=== PATIENT | female | born 1970 | race Caucasian/White ===

== ENCOUNTER → 2020-07-28 | Outpatient (CLI) | payer BC ==
[2020-07-28 17:23] LABS: HEMOGLOBIN 11.8 gm/dl (12.3-15.3); RED BLOOD COUNT 3.98 M/UL (4.00-5.10); WHITE BLOOD COUNT 6.4 K/UL (4.5-11.0)
[2020-07-28 17:41] LABS: BUN/CREATININE RATIO 14 (0-10)
[2020-07-30 09:14] LABS: VITAMIN D, 25-HYDROXY 36.2 ng/mL (30.0-100.0)
== END ==
LOC: LAB 16:32
PROVIDERS: Family Medicine
DX: R53.83 Other fatigue (principal); F17.200 Nicotine dependence, unspecified, uncomplicated; Z87.01 Personal history of pneumonia (recurrent)
CPT/HCPCS: 71046; 80053; 82607; 83921; 84443; 85025

== ENCOUNTER → 2020-10-22 | Outpatient (CLI) | payer BC ==
[2020-10-22 18:14] LABS: HEMOGLOBIN 12.7 gm/dl (12.3-15.3); RED BLOOD COUNT 4.1 M/UL (4.00-5.10); WHITE BLOOD COUNT 6.3 K/UL (4.5-11.0)
== END ==
LOC: LAB 16:53
PROVIDERS: Family Medicine
DX: D51.0 Vitamin B12 deficiency anemia due to intrinsic factor deficiency (principal)
CPT/HCPCS: 36415; 82607; 83921; 85025

== ENCOUNTER → 2021-01-02 | Outpatient (CLI) | payer BC ==
[2021-01-02 14:44] LABS: HEMOGLOBIN 12.6 gm/dl (12.3-15.3); RED BLOOD COUNT 4.01 M/UL (4.00-5.10); WHITE BLOOD COUNT 6.7 K/UL (4.5-11.0)
== END ==
LOC: LAB 14:25
PROVIDERS: Family Medicine
DX: D51.0 Vitamin B12 deficiency anemia due to intrinsic factor deficiency (principal)
CPT/HCPCS: 36415; 82607; 83921; 85025

== ENCOUNTER → 2021-06-22 | Outpatient (CLI) | payer BC ==
[2021-06-22 12:20] LABS: HEMOGLOBIN 12.3 gm/dl (12.3-15.3); RED BLOOD COUNT 4.03 M/UL (4.00-5.10); WHITE BLOOD COUNT 6.9 K/UL (4.5-11.0)
[2021-06-22 12:49] LABS: BUN/CREATININE RATIO 15 (0-10)
[2021-06-23 08:19] LABS: VITAMIN D, 25-HYDROXY 22.3 ng/mL (30.0-100.0)
== END ==
LOC: LAB 11:35
PROVIDERS: Family Medicine
DX: R06.00 Dyspnea, unspecified (principal); R53.83 Other fatigue
CPT/HCPCS: 36415; 71046; 80053; 82607; 83921; 84443; 85025; 93005

== ENCOUNTER → 2021-07-16 | Outpatient (CLI) | payer BC | LOC: HEART 5 09:18 | DX: R06.00 Dyspnea, unspecified (principal); R94.2 Abnormal results of pulmonary function studies | CPT/HCPCS: 94060; 94729 ==

== ENCOUNTER → 2021-07-27 | Outpatient (CLI) | payer BC | LOC: HEART 5 11:30 | DX: R06.00 Dyspnea, unspecified (principal) ==

== ENCOUNTER 2021-09-26 11:32 | Emergency (ER) | payer BC ==
[2021-09-26] MEDS ORDERED: IBUPROFEN600 MG PO (12:50)
== END 2021-09-26 13:57 | disposition home or self-care (01) ==
LOC: ER1 11:32
DX: S93.601A Unspecified sprain of right foot, initial encounter (principal); F17.200 Nicotine dependence, unspecified, uncomplicated; W01.0XXA Fall on same level from slipping, tripping and stumbling without subsequent striking against object, initial encounter; X50.1XXA Overexertion from prolonged static or awkward postures, initial encounter
CPT/HCPCS: 73630; 99283

== ENCOUNTER → 2021-10-16 | Outpatient (CLI) | payer BC ==
[~2021-10-16] MED LIST: IBUPROFEN600 MG PO
== END ==
LOC: RAD 12:33
DX: M79.675 Pain in left toe(s) (principal); S92.425A Nondisplaced fracture of distal phalanx of left great toe, initial encounter for closed fracture
CPT/HCPCS: 73630